=== PATIENT | male | born 2000 | race Caucasian/White ===

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

== ENCOUNTER 2018-03-17 19:30 | Emergency (ER) | payer BC ==
[2018-03-17 19:50] VITALS: BP 127/78; PULSE 86; RESP 16; TEMP 98.5
--- NOTE | 2018-03-17 20:54 | ED ---
Skin/Abscess/FB HPI - General Chief complaint: Skin/Abscess/Foreign Body Stated complaint: rash on leg Time Seen by Provider: 03/17/18 20:41 Source: patient, RN notes reviewed Mode of arrival: ambulatory Limitations: no limitations - History of Present Illness Initial comments: This is a 17-year-old male who presents to the emergency department with chief complaint of rash. Patient states that he developed a red rash on his left thigh yesterday. He states that it is painful and burning. He states that approximately 1 week prior to the appearance of rash he had pain in the left thigh. He states he is up-to-date with all vaccinations. He states that his rash has been spreading. Denies fever, chills, chest pain, shortness of breath , abdominal pain, nausea or vomiting, constipation or diarrhea, dysuria or hematuria, numbness or tingling, headache or vision changes. - Related Data Previous Rx's Medication Instructions Recorded Acyclovir [Zovirax] 800 mg PO 5XD 7 Days #35 tab 03/17/18 Lidocaine 5% Patch [Lidoderm 5% 1 patch TOPICAL DAILY #5 patch 03/17/18 Patch] Allergies Allergy/AdvReac Type Severity Reaction Status Date / Time erythromycin base Allergy Unknown Verified 03/17/18 19:49 Review of Systems ROS Statement: Those systems with pertinent positive or pertinent negative responses have been documented in the HPI. ROS Other: All systems not noted in ROS Statement are negative. Past Medical History Past Medical History: No Reported History History of Any Multi-Drug Resistant Organisms: None Reported Past Surgical History: No Surgical Hx Reported Past Psychological History: No Psychological Hx Reported Smoking Status: Never smoker Past Alcohol Use History: None Reported Past Drug Use History: None Reported General Exam - General Exam Comments Initial Comments: General: Awake and alert, well-developed; in no apparent distress. HEENT: Head atraumatic, normocephalic. Pupils are equal, round and reactive to light. Extraocular movements intact. Oropharynx moist without erythema or exudate. Neck: Supple. Normal ROM. Cardiovascular: Regular rate and rhythm. No murmurs, rubs or gallops. Chest symmetrical. Respiratory: Lungs clear to auscultation bilaterally. No wheezes, rales or rhonchi. Normal respiratory effort with no use of accessory muscles. Musculoskeletal: Normal ROM, no tenderness bilateral upper and lower extremities. Ambulating normally. Skin: [place], warm and dry. Erythematous vesicular lesions in dermatomal pattern on left anterior thigh. Neurological: Alert and oriented x3. CN II-XII grossly intact. Speech is fluent and answers are appropriate. No focal neuro deficits. Psychiatric: Normal mood and affect. No overt signs of depression or anxiety noted. Limitations: no limitations Course Vital Signs 03/17/18 19:48 Temperature 98.5 F Pulse Rate 86 Respiratory 16 Rate Blood Pressure 127/78 O2 Sat by Pulse 98 Oximetry Medical Decision Making - Medical Decision Making This is a 17-year-old male who presents to the emergency department with chief complaint of rash on his left thigh. This developed yesterday and prior to the rash appearing patient had burning pain in the left thigh. Rash is erythematous vesicular lesions in a dermatomal pattern. This rash does appear to be shingles. Patient will be started on antiviral and lidocaine patch for analgesia. Patient's vital signs are stable and he is in no acute distress. He 'll be discharged home at this time. He is in agreement with plan and voices understanding. All questions answered. Disposition Clinical Impression: Herpes zoster Disposition: HOME SELF-CARE Condition: Good Instructions: Shingles (ED) Additional Instructions: Please take medications as prescribed. Please follow up with primary care provider within 1-2 days. Return to emergency department if symptoms should worsen or any concerns arise. Prescriptions: Acyclovir [Zovirax] 800 mg PO 5XD 7 Days #35 tab Lidocaine 5% Patch [Lidoderm 5% Patch] 1 patch TOPICAL DAILY #5 patch Is patient prescribed a controlled substance at d/c from ED?: No Referrals: None,Stated [Primary Care Provider] - 1-2 days Time of Disposition: 20:55
[2018-03-17] MEDS ORDERED: ACYCLOVIR 800 MG TAB PO STA (20:55)
[2018-03-17] MEDS ORDERED: LIDOCAINE 5% PATCH TOPICAL ONE (21:00)
== END 2018-03-17 21:21 | disposition home or self-care (01) ==
LOC: EC 19:30
DX: B02.9 Zoster without complications (principal); Z88.1 Allergy status to other antibiotic agents
CPT/HCPCS: 99282

== ENCOUNTER 2018-03-23 00:54 | Emergency (ER) | payer BC ==
[2018-03-23 00:59] VITALS: BP 123/82; PULSE 97; RESP 18; TEMP 98.3
[2018-03-23] MEDS ORDERED: ACET/COD 300 MG/30 MG STARTER PACK 6 TAB BTL PO STA (01:10)
--- NOTE | 2018-03-23 01:20 | ED ---
Skin/Abscess/FB HPI - General Chief complaint: Skin/Abscess/Foreign Body Stated complaint: Shingles Pain Time Seen by Provider: 03/23/18 01:01 Source: patient, RN notes reviewed, old records reviewed Mode of arrival: ambulatory Limitations: no limitations - History of Present Illness Initial comments: This patient is a 17-year-old male presents the emergency department for reevaluation due to shingles. Shingles approximately three days ago and started on a cycle of year. Patient states he's been taking the medication but the pain is getting progressively worse and more lesions are occurring. Patient states that he has use lidocaine patches which keep falling off. - Related Data Previous Rx's Medication Instructions Recorded Acyclovir [Zovirax] 800 mg PO 5XD 7 Days #35 tab 03/17/18 Lidocaine 5% Patch [Lidoderm 5% 1 patch TOPICAL DAILY #5 patch 03/17/18 Patch] Gabapentin [Neurontin] 300 mg PO DIRECTED #12 cap 03/23/18 Allergies Allergy/AdvReac Type Severity Reaction Status Date / Time erythromycin base Allergy Unknown Verified 03/23/18 00:59 Review of Systems ROS Statement: Those systems with pertinent positive or pertinent negative responses have been documented in the HPI. ROS Other: All systems not noted in ROS Statement are negative. Past Medical History Past Medical History: No Reported History History of Any Multi-Drug Resistant Organisms: None Reported Past Surgical History: No Surgical Hx Reported Past Psychological History: No Psychological Hx Reported Smoking Status: Never smoker Past Alcohol Use History: None Reported Past Drug Use History: None Reported General Exam - General Exam Comments Initial Comments: 17 year old male, no distress. Limitations: no limitations General appearance: alert, in no apparent distress Head exam: Present: atraumatic, normocephalic, normal inspection Eye exam: Present: normal appearance, PERRL, EOMI. Absent: scleral icterus, conjunctival injection, periorbital swelling ENT exam: Present: normal exam, mucous membranes moist Neck exam: Present: normal inspection. Absent: tenderness, meningismus, lymphadenopathy Respiratory exam: Present: normal lung sounds bilaterally. Absent: respiratory distress, wheezes, rales, rhonchi, stridor Cardiovascular Exam: Present: regular rate, normal rhythm, normal heart sounds. Absent: systolic murmur, diastolic murmur, rubs, gallop, clicks Extremities exam: Present: normal inspection, full ROM, normal capillary refill , other (multiple vesicles in dermatomal pattern over medial right knee and thigh. Some are crusted over, while a few new lesions appearing. ). Absent: tenderness, pedal edema, joint swelling, calf tenderness Back exam: Present: normal inspection Neurological exam: Present: alert, oriented X3, CN II-XII intact Psychiatric exam: Present: normal affect, normal mood Skin exam: Present: warm, dry, intact, normal color, rash (shingles rash over right medial knee. ) Course Vital Signs 03/23/18 00:57 Temperature 98.3 F Pulse Rate 97 Respiratory 18 Rate Blood Pressure 123/82 O2 Sat by Pulse 97 Oximetry Medical Decision Making - Medical Decision Making 17-year-old male complains of pain and right medial knee where he was diagnosed with shingles. He does have new lesions there occurring. I discussed that he needs to continue to take the antiviral medication. I also discussed we could start the patient on a short term a gabapentin to help with the pain as well. Will the shirts a patient at this time continue lidocaine patch. Will discharge with Tylenol 3 starter pack. All questions answered, return parameters discussed. Disposition Clinical Impression: Herpes zoster Disposition: HOME SELF-CARE Condition: Good Instructions: Shingles (ED) Additional Instructions: Continue lidocaine patch. The continues the gabapentin medicine as directed. Continue to take the acyclovir. Follow-up with a primary care provider. Prescriptions: Gabapentin [Neurontin] 300 mg PO DIRECTED #12 cap Is patient prescribed a controlled substance at d/c from ED?: No When asked, does pt state using other controlled substances?: No If prescribed controlled substance>3 days was MAPS reviewed?: No If opioid is for acute pain is fill amount 7 days or less?: No If Rx opioid, was Start Talking consent form obtained?: No Referrals: None,Stated [Primary Care Provider] - 1-2 days Time of Disposition: 01:11
== END 2018-03-23 01:34 | disposition home or self-care (01) ==
LOC: EC 00:54
DX: B02.9 Zoster without complications (principal); Z88.1 Allergy status to other antibiotic agents
CPT/HCPCS: 99283

== ENCOUNTER 2018-05-09 01:28 | Emergency (ER) | payer BC ==
[2018-05-09 01:34] VITALS: PULSE 94
[2018-05-09] MEDS ORDERED: ONDANSETRON 4 MG/2 ML VIAL IVP STA (01:43)
[2018-05-09] MEDS ORDERED: SODIUM CHLORIDE 0.9% 2,000 ML IV STA (01:43)
--- NOTE | 2018-05-09 01:48 | ED ---
Nausea/Vomiting/Diarrhea HPI - General Chief complaint: Nausea/Vomiting/Diarrhea Stated complaint: vomiting Time Seen by Provider: 05/09/18 01:39 Source: patient, RN notes reviewed Mode of arrival: ambulatory Limitations: no limitations - History of Present Illness Initial comments: 17-year-old male presents emergency from chief complaint nausea vomiting diarrhea. Patient states started at 11 AM the day prior. Patient states that he vomited most recent 30 minutes ago. Patient complains of diffuse abdominal discomfort. Denies any sick contacts no recent traveling no recent antibiotic use. Patient states that he is not sure why he is vomiting states he has no medications to help at home so he came the emergency department. He has a benign past medical history. Patient does not take any current medications has ALLERGY to erythromycin - Related Data Home Medications Medication Instructions Recorded Confirmed No Known Home Medications 05/09/18 05/09/18 Allergies Allergy/AdvReac Type Severity Reaction Status Date / Time erythromycin base Allergy Unknown Verified 05/09/18 01:34 Review of Systems ROS Statement: Those systems with pertinent positive or pertinent negative responses have been documented in the HPI. ROS Other: All systems not noted in ROS Statement are negative. Past Medical History Past Medical History: No Reported History History of Any Multi-Drug Resistant Organisms: None Reported Past Surgical History: No Surgical Hx Reported Past Psychological History: No Psychological Hx Reported Smoking Status: Never smoker Past Alcohol Use History: None Reported Past Drug Use History: None Reported General Exam Limitations: no limitations General appearance: alert, in no apparent distress Head exam: Present: atraumatic, normocephalic, normal inspection Eye exam: Present: normal appearance, PERRL, EOMI. Absent: scleral icterus, conjunctival injection, periorbital swelling Respiratory exam: Present: normal lung sounds bilaterally. Absent: respiratory distress, wheezes, rales, rhonchi, stridor Cardiovascular Exam: Present: regular rate, normal rhythm, normal heart sounds. Absent: systolic murmur, diastolic murmur, rubs, gallop, clicks GI/Abdominal exam: Present: soft, tenderness (Mild diffuse), normal bowel sounds. Absent: distended, guarding, rebound, rigid Back exam: Absent: CVA tenderness (R), CVA tenderness (L) Skin exam: Present: warm, dry, intact, normal color. Absent: rash Course Vital Signs 05/09/18 01:29 Temperature 97.8 F Pulse Rate 94 Respiratory 20 Rate Blood Pressure 119/78 O2 Sat by Pulse 99 Oximetry Medical Decision Making - Medical Decision Making 17-year-old male present emergency from for nausea vomiting diarrhea. Patient has gastroenteritis. He did have lab work urinalysis. He was given fluids and Zofran which he states he feels much better at this time. He'll be discharged with Zofran return parameters were discussed. - Lab Data Result diagrams: 05/09/18 01:59 05/09/18 01:59 Lab Results 05/09/18 05/09/18 05/09/18 Range/Units 01:59 01:59 01:59 WBC 13.5 H (4.0-11.0) k/uL RBC 5.50 (4.30-5.90) m/uL Hgb 16.1 (13.0-17.5) gm/dL Hct 46.8 (39.0-53.0) % MCV 85.2 (80.0-100.0) fL MCH 29.2 (25.0-35.0) pg MCHC 34.3 (31.0-37.0) g/dL RDW 12.5 (11.5-15.5) % Plt Count 220 (150-450) k/uL Neutrophils % 90 % Lymphocytes % 4 % Monocytes % 4 % Eosinophils % 1 % Basophils % 0 % Neutrophils # 12.2 H (1.3-7.7) k/uL Lymphocytes # 0.6 L (1.0-4.8) k/uL Monocytes # 0.5 (0-1.0) k/uL Eosinophils # 0.2 (0-0.7) k/uL Basophils # 0.0 (0-0.2) k/uL Sodium 138 (137-145) mmol/L Potassium 5.2 H (3.5-5.1) mmol/L Chloride 103 (98-107) mmol/L Carbon Dioxide 25 (22-30) mmol/L Anion Gap 10 mmol/L BUN 19 (9-20) mg/dL Creatinine 0.90 (0.66-1.25) mg/dL Est GFR (CKD-EPI)AfAm >90 (>60 ml/min/1.73 sqM) Est GFR (CKD-EPI)NonAf >90 (>60 ml/min/1.73 sqM) Glucose 102 H (74-99) mg/dL Calcium 9.5 (8.4-10.2) mg/dL Total Bilirubin 1.0 (0.2-1.3) mg/dL AST 37 (17-59) U/L ALT 35 (21-72) U/L Alkaline Phosphatase 89 (38-126) U/L Total Protein 8.1 (6.3-8.2) g/dL Albumin 4.9 (3.5-5.0) g/dL Amylase 77 (30-110) U/L Lipase 61 (23-300) U/L Urine Color Yellow Urine Appearance Clear (Clear) Urine pH 5.5 (5.0-8.0) Ur Specific [place] 1.020 (1.001-1.035) Urine Protein Negative (Negative) Urine Glucose (UA) Negative (Negative) Urine Ketones 2+ H (Negative) Urine Blood Negative (Negative) Urine Nitrite Negative (Negative) Urine Bilirubin Negative (Negative) Urine Urobilinogen <2.0 (<2.0) mg/dL Ur Leukocyte Esterase Trace H (Negative) Urine RBC <1 (0-5) /hpf Urine WBC <1 (0-5) /hpf Ur Squamous Epith Cells <1 (0-4) /hpf Urine Mucus Occasional H (None) /hpf Disposition Clinical Impression: Gastroenteritis Disposition: HOME SELF-CARE Condition: Stable Instructions: Gastroenteritis (ED) Additional Instructions: Please return to the Emergency Department if symptoms worsen or any other concerns. Is patient prescribed a controlled substance at d/c from ED?: No Referrals: None,Stated [Primary Care Provider] - 1-2 days Time of Disposition: 02:37
[2018-05-09 02:18] LABS: Basophils % (A) 0 %; Eosinophils # (A) 0.2 k/uL (0-0.7); Eosinophils % (A) 1 %; HCT 46.8 % (39.0-53.0); HGB 16.1 gm/dL (13.0-17.5); Lymphocytes # (A) 0.6 k/uL (1.0-4.8); Lymphocytes % (A) 4 %; MCH 29.2 pg (25.0-35.0); MCHC 34.3 g/dL (31.0-37.0); MCV 85.2 fL (80.0-100.0); Mean Platelet Volume 6.7; Monocytes # (A) 0.5 k/uL (0-1.0); Monocytes % (A) 4 %; Neutrophils # (A) 12.2 k/uL (1.3-7.7); Neutrophils % (A) 90 %; Platelet Count 220 k/uL (150-450); RDW 12.5 % (11.5-15.5); WBC 13.5 k/uL (4.0-11.0)
[2018-05-09 02:20] LABS: Appearance,Urine Clear (Clear); Bilirubin,Urine Negative (Negative); Blood,Urine Negative (Negative); Color,Urine Yellow; Glucose,Urine (UA) Negative (Negative); Ketones,Urine 2+ (Negative); Leukocyte Esterase,Urine Trace (Negative); Mucus,Urine Occasional /hpf; Nitrite,Urine Negative (Negative); PH, Urine 5.5 (5.0-8.0); Protein,Urine Negative (Negative); RBC,Urine <1 /hpf (0-5); Squamous Epithelial Cell,Urine <1 /hpf (0-4); Urobilinogen,Urine <2.0 mg/dL (<2.0); WBC,Urine <1 /hpf (0-5)
[2018-05-09 02:26] LABS: ALT 35 U/L (21-72); AST 37 U/L (17-59); Alkaline Phosphatase 89 U/L (38-126); Amylase 77 U/L (30-110); Anion Gap 10 mmol/L; Blood Urea Nitrogen 19 mg/dL (9-20); Calcium 9.5 mg/dL (8.4-10.2); Carbon Dioxide 25 mmol/L (22-30); Chloride 103 mmol/L (98-107); Glucose 102 mg/dL (74-99); Lipase 61 U/L (23-300); Sodium 138 mmol/L (137-145)
[2018-05-09 02:32] LABS: Albumin 4.9 g/dL (3.5-5.0); Potassium 5.2 mmol/L (3.5-5.1); Total Protein 8.1 g/dL (6.3-8.2)
[2018-05-09] MEDS ORDERED: ONDANSETRON 4 MG ODT STARTER PACK 2 TAB BTL PO STA (02:36)
[2018-05-09 02:57] VITALS: BP 117/62; RESP 16; TEMP 98.9
== END 2018-05-09 02:57 | disposition home or self-care (01) ==
LOC: EC 01:28
DX: K52.9 Noninfective gastroenteritis and colitis, unspecified (principal); Z88.1 Allergy status to other antibiotic agents
CPT/HCPCS: 99284; 96374; 96361 ×2; 36415; 80053; 82150; 83690; 85025; 81001; J2405

== ENCOUNTER 2019-06-29 19:42 | Emergency (ER) | payer BC ==
[2019-06-29] MEDS ORDERED: KETOROLAC 30 MG/ML 1 ML VIAL IVP STA (20:36)
[2019-06-29] MEDS ORDERED: SODIUM CHLORIDE 0.9% 1,000 ML IV STA (20:36)
[2019-06-29] MEDS ORDERED: METOCLOPRAMIDE 5 MG/ML 2 ML VIAL IVP STA (20:37)
[2019-06-29] MEDS ORDERED: diphenhydrAMINE 50 MG/ML 1 ML VIAL IVP STA (20:37)
--- NOTE | 2019-06-29 21:05 | ED ---
General Adult HPI - General Chief complaint: Headache Stated complaint: Vomiting, headache, bodyaches Time Seen by Provider: 06/29/19 20:01 Source: patient Mode of arrival: ambulatory Limitations: no limitations - History of Present Illness Initial comments: Patient is a 19-year-old male presenting to emergency Department with a chief complaint of a headache. Patient reports a history of chronic migraines that he has been able to treat with [id number] analgesics. Patient reports his current headache feels like his other headaches but it is slightly increased in severity. Patient reports the pain is located bilateral temporal rales. Patient does report nausea with multiple episodes of vomiting, as well as photosensitivity. Patient denies any blurry vision, ataxia, one-sided weakness, chest pain, chest tightness or shortness of breath. Patient states this is not the worse headache in his life. Patient denies any fevers night sweats or chills. - Related Data Home Medications Medication Instructions Recorded Confirmed Ibuprofen [Motrin] 800 mg PO TID PRN 06/29/19 06/29/19 Previous Rx's Medication Instructions Recorded Ondansetron Odt [Zofran Odt] 4 mg PO Q8HR PRN #15 tab 06/29/19 Allergies Allergy/AdvReac Type Severity Reaction Status Date / Time erythromycin base AdvReac Nausea & Verified 06/29/19 19:55 Vomiting Review of Systems ROS Statement: Those systems with pertinent positive or pertinent negative responses have been documented in the HPI. ROS Other: All systems not noted in ROS Statement are negative. Past Medical History Past Medical History: No Reported History History of Any Multi-Drug Resistant Organisms: None Reported Past Surgical History: No Surgical Hx Reported Past Psychological History: No Psychological Hx Reported Smoking Status: Never smoker Past Alcohol Use History: None Reported Past Drug Use History: None Reported General Exam Limitations: no limitations General appearance: alert, in no apparent distress Head exam: Present: atraumatic, normocephalic, normal inspection Eye exam: Present: normal appearance, PERRL, EOMI Pupils: Present: normal accommodation ENT exam: Present: normal exam, normal oropharynx, mucous membranes moist, TM's normal bilaterally, normal external ear exam Neck exam: Present: normal inspection, full ROM. Absent: other (Negative Brudzinski. Negative Kernig sign.) Respiratory exam: Present: normal lung sounds bilaterally Cardiovascular Exam: Present: regular rate, normal rhythm, normal heart sounds Extremities exam: Present: normal inspection, full ROM, normal capillary refill, other (+2 ulnar and radial pulses bilaterally.) Back exam: Present: normal inspection, full ROM Neurological exam: Present: alert, oriented X3, CN II-XII intact, normal gait Psychiatric exam: Present: normal affect, normal mood Skin exam: Present: warm, intact, normal color Course Vital Signs 06/29/19 06/29/19 19:46 22:50 Temperature 99.9 F H 98.9 F Pulse Rate 104 H 98 Respiratory 20 18 Rate Blood Pressure 120/78 117/72 O2 Sat by Pulse 99 100 Oximetry Medical Decision Making - Medical Decision Making Patient is a 19-year-old male presenting to emergency Department with a chief complaint of a headache. Patient has a history of chronic migraines that he is typically able to treat with [id number] analgesics but not this time. Patient given Reglan, Benadryl and Toradol. On reevaluation patient reports feeling better and nausea has completely resolved. Patient does appear to have a slight fever99.9. Patient has negative Brudzinski and Kernig sign. Patient advised about the possible signs of meningitis and the workup needed to rule out. Patient reports that he does not further workup and he feels better and is ready go home. Strict return parameters were thoroughly discussed with patient who is understanding and agreeable. Case discussed with physician. Disposition Clinical Impression: Headache Disposition: HOME SELF-CARE Condition: Stable Instructions (If sedation given, give patient instructions): Acute Headache (ED) Additional Instructions: Please follow with primary care. Alternate between Tylenol and ibuprofen for pain control. Please take prescribed medication as directed. Please return to emergency department if symptoms worsen. Prescriptions: Ondansetron Odt [Zofran Odt] 4 mg PO Q8HR PRN #15 tab PRN Reason: Nausea Is patient prescribed a controlled substance at d/c from ED?: No Referrals: None,Stated [Primary Care Provider] - 1-2 days Time of Disposition: 22:16
[2019-06-29] MEDS ORDERED: ONDANSETRON 4 MG ODT STARTER PACK 2 TAB BTL PO STA (22:16)
[2019-06-29 22:51] VITALS: BP 117/72; PULSE 98; RESP 18; TEMP 98.9
== END 2019-06-29 22:51 | disposition home or self-care (01) ==
LOC: EC 19:42
DX: R51 Headache (principal); R11.2 Nausea with vomiting, unspecified; H53.149 Visual discomfort, unspecified; Z88.1 Allergy status to other antibiotic agents; Z86.69 Personal history of other diseases of the nervous system and sense organs
CPT/HCPCS: 99283; 96374; 96375 ×2; 96361; J1200; J2765; J1885; S0119

== ENCOUNTER 2019-06-30 12:07 | Emergency (ER) | payer BC ==
[2019-06-30 12:56] VITALS: RESP 18
--- NOTE | 2019-06-30 13:56 | CT ---
EXAMINATION TYPE: CT brain wo con, CT facial bones wo con DATE OF EXAM: 06/30/2019 COMPARISON: NONE HISTORY: Fever, Congestion, Headache CT DLP: 1053.6 (accession [id number]), Included within the DLP for the brain of 1053.6 (accession [id number]) mGycm. Automated Exposure Control for Dose Reduction was Utilized. TECHNIQUE: CT scan of the head and facial bones is performed without contrast. FINDINGS: There is no acute intracranial hemorrhage, mass effect, or midline shift identified. The ventricles and sulci are within normal limits in size. The globes are intact and the visualized sin uses are clear. There is leftward nasal septal deviation. Middle and inferior nasal turbinate mucosal hypertrophy is seen on the right. Mild mucosal thickening is seen within the inferior maxillary sinu ses, ethmoid sinuses, and sphenoid sinuses. Frontal sinuses and mastoid air cells are well aerated. No acute fracture of the facial bones is seen. Old fracture deformity of the right nasal bone is note d. Maxillary spine is intact and unremarkable. Upper cervical spine and skull base are also unremarka ble. Although the ostia medial complexes are patent the right ostiomeatal complex is significantly na rrowed by mucosal thickening. Temporomandibular joints are symmetric and unremarkable. IMPRESSION: 1. No acute intracranial hemorrhage, mass effect, or midline shift is seen. 2. Right middle and inferior nasal turbinate mucosal hypertrophy with leftward nasal septal deviation and mild mucosal thickening of the paranasal sinuses/sinusitis. There is also significant narrowing of the right ostiomeatal complex by mucosal thickening.
[2019-06-30] MEDS ORDERED: PSEUDOEPHEDRINE 30 MG TAB PO STA (14:02)
[2019-06-30] MEDS ORDERED: AMOXIC-POT CLAV 875-125MG 1 EACH TAB PO STA (14:02)
[2019-06-30] MEDS ORDERED: AMOXIC-POT CLAV 875MG STARTER 2 EACH TABLET PO STA (14:02)
[2019-06-30] MEDS ORDERED: METOCLOPRAMIDE 5 MG/ML 2 ML VIAL IVP STA (14:10)
[2019-06-30] MEDS ORDERED: diphenhydrAMINE 50 MG/ML 1 ML VIAL IVP STA (14:10)
[2019-06-30] MEDS ORDERED: KETOROLAC 30 MG/ML 1 ML VIAL IVP STA (14:10)
[2019-06-30] MEDS ORDERED: SODIUM CHLORIDE 0.9% 500 ML 500 ML IV STA (14:10)
--- NOTE | 2019-06-30 14:16 | ED ---
General Adult HPI - General Chief complaint: Headache Stated complaint: Fever, Congested, Headache Time Seen by Provider: 06/30/19 12:59 Source: patient, RN notes reviewed, old records reviewed Mode of arrival: ambulatory Limitations: no limitations - History of Present Illness Initial comments: 19-year-old male patient passed no history of migraine headaches continue chief complaint of migraine headache. Patient reports that for approximately 2 days he has had a migraine headache, sinus pressure and congestion, fevers. Patient notes that he woke up today and had a 103 fever. Patient then took ibuprofen. Patient reports to the headache had an insidious onset. Patient denies thunderclap onset. Patient denies any loss of consciousness or changes in vision. Patient denies any previous imaging of head. Denies worst headache of life, however does state that is pretty severe. Denies other complaints. Systemic: Pt denies fatigue, fever/chills, rash. Pt denies weakness, night sweats, weight loss. Neuro: Pt denies visual disturbances, syncope or pre-syncope. HEENT: Pt denies ocular discharge or irritation, otalgia, rhinorrhea, pharyngitis or notable lymphadenopathy. Cardiopulmonary: Pt denies chest pain, SOB, heart palpitations, dyspnea on exertion. Abdominal/GI: Pt denies abdominal pain, n/v/d. : Pt denies dysuria, burning w/ urination, frequency/urgency. Denies new onset urinary or bowel incontinence. MSK: Pt denies myalgia, loss of strength or function in extremities. Neuro: Pt denies new onset weakness, paresthesias. - Related Data Home Medications Medication Instructions Recorded Confirmed Ibuprofen [Motrin] 800 mg PO TID PRN 06/29/19 06/30/19 Previous Rx's Medication Instructions Recorded Amoxicillin/Potassium Clav 1 each PO Q12HR 7 Days #14 tab 06/30/19 [Augmentin 875-125 Tablet] Allergies Allergy/AdvReac Type Severity Reaction Status Date / Time erythromycin base AdvReac Nausea & Verified 06/30/19 13:08 Vomiting Review of Systems ROS Statement: Those systems with pertinent positive or pertinent negative responses have been documented in the HPI. ROS Other: All systems not noted in ROS Statement are negative. Past Medical History Past Medical History: No Reported History History of Any Multi-Drug Resistant Organisms: None Reported Past Surgical History: No Surgical Hx Reported Past Psychological History: Anxiety Smoking Status: Never smoker Past Alcohol Use History: Rare Past Drug Use History: None Reported General Exam - General Exam Comments Initial Comments: Constitutional: NAD, AOX3, Pt has pleasant affect. HEENT: NC/AT, trachea midline, neck supple, no lymphadenopathy. Posterior pharynx non erythematous, without exudates. External ears appear normal, without discharge. Mucous membranes moist. Eyes PERRLA, EOM intact. There is no scleral icterus. No pallor noted. Reproducible maxillary sinus pressure. Cardiopulmonary: RRR, no murmurs, rubs or gallops, no JVD noted. Lungs CTAB in anterior and posterior nobles. No peripheral edema. Abdominal exam: Abdomen soft and non-distended. Abdomen non-tender to palpation in all 4 quadrants. Bowel sounds active in LLQ. No hepatosplenomegaly. No ecchymosis Neuro: CN II-XII intact. No nuchal rigidity. No raccon eyes, no vazquez sign, no hemotympanum. No cervical spinal tenderness. Brudzinski's and Kernig's sign negative. MSK: No posterior calf tenderness bilaterally, homans sign negative bilaterally. Posterior tibialis and radial pulse +2 bilaterally. Sensation intact in upper and lower extremities. Full active ROM in upper and lower extremities, 5/5 stregnth. Limitations: no limitations Course Vital Signs 06/30/19 12:54 Temperature 98.5 F Pulse Rate 100 Respiratory 18 Rate Blood Pressure 122/79 O2 Sat by Pulse 96 Oximetry Medical Decision Making - Medical Decision Making 19-year-old male patient presented to ED with chief complaint of 2 days of migraine headache. Patient also reports that he has had fevers as well as sinus congestion, maxillary sinus pain. Patient was seen in this emergency department yesterday however did not have any imaging performed. Patient was the headache has worsened as well has fevers and sinus pressure. Patient vital signs stable, afebrile. Physical exam displayed: CN II-XII intact. No nuchal rigidity. No raccon eyes, no vazquez sign, no hemotympanum. No cervical spinal tenderness. Brudzinski's and Kernig's sign negative. Reproducible maxillary sinus pressure. CT brain displayed no acute intracranial hemorrhage, mass effect or midline shift. Facial bones displayed right middle and inferior nasal turbinate mucosal hypertrophy with left right septal deviation and mild mucosal thickening of the paranasal sinuses/sinusitis. There is also significant narrowing of the right ostiomeatal complex by mucosal thickening. Patient headache resolved without intervention. Patient be treated with Augmentin for sinusitis. Patient di scharged with ENT follow-up. Case discussed with Dr. Valentine. Disposition Clinical Impression: Sinusitis, Acute headache Disposition: HOME SELF-CARE Condition: Stable Instructions (If sedation given, give patient instructions): Acute Headache (ED) Additional Instructions: Patient to adhere to previously discussed treatment plan and will take medication(s) as directed. Patient to follow up with PCP in 1-2 days. Patient to return to ED if symptoms do not improve. Follow-up with primary care and ENT follow-up. Take medication as prescribed. Return to ER if condition worsens. Prescriptions: Amoxicillin/Potassium Clav [Augmentin 875-125 Tablet] 1 each PO Q12HR 7 Days #14 tab Is patient prescribed a controlled substance at d/c from ED?: No Referrals: None,Stated [Primary Care Provider] - 1-2 days Max Chavez DO [Doctor of Osteopathic Medicine] - 1-2 days
[2019-06-30 14:39] VITALS: BP 108/68; PULSE 79; TEMP 97.6
== END 2019-06-30 14:39 | disposition home or self-care (01) ==
LOC: EC 12:07
DX: J01.90 Acute sinusitis, unspecified (principal); G43.909 Migraine, unspecified, not intractable, without status migrainosus; J34.2 Deviated nasal septum; Z88.1 Allergy status to other antibiotic agents
CPT/HCPCS: 70450; 70486; 99284

== ENCOUNTER → 2020-07-25 | Outpatient (CLI) | payer BC | END | disposition home or self-care (01) | LOC: LABWHC1 11:55 | PROVIDERS: ATTEND Emergency Medicine | DX: Z20.828 Contact with and (suspected) exposure to other viral communicable diseases (principal) | CPT/HCPCS: U0003; C9803 ==

== ENCOUNTER → 2020-09-11 | Outpatient (CLI) | payer BC | END | disposition home or self-care (01) | LOC: LABWHC1 10:20 | PROVIDERS: ATTEND Emergency Medicine | DX: Z20.828 Contact with and (suspected) exposure to other viral communicable diseases (principal) | CPT/HCPCS: U0003; C9803 ==

== ENCOUNTER 2020-09-20 06:53 | Emergency (ER) | payer BC ==
[2020-09-20 07:02] VITALS: BP 116/64; PULSE 98; RESP 18; TEMP 97.8
[2020-09-20] MEDS ORDERED: SODIUM CHLORIDE 0.9% 1,000 ML IV STA (07:11)
--- NOTE | 2020-09-20 07:17 | ED ---
General Adult HPI - General Chief complaint: Recheck/Abnormal Lab/Rx Stated complaint: Headache, Nausea Time Seen by Provider: 09/20/20 07:03 Source: patient, RN notes reviewed Mode of arrival: ambulatory Limitations: no limitations - History of Present Illness Initial comments: 20-year-old male with a past medical history of headaches presents to the [facility] for several complaints. Patient reports all symptoms have been going on for at least 2 weeks. He has been tested negative for covid twice. Reports he has not attempted to follow-up with a primary care provider. Patient reports he has been getting headaches which are a chronic symptom for years. These headaches have an insidious onset and come and go. He reports he sometimes has eye pain with these headaches which is also chronic. Patient reports he also has some nausea denies vomiting. States he has been able to drink plenty of fluids. Denies abdominal pain. Denies diarrhea. Patient is also somewhat short of breath. Slight cough and congestion. Denies any chest pain. States he has felt generally achy.Patient has no other complaints at this time including chest pain, abdominal pain, vomiting, or visual changes. - Related Data Home Medications Medication Instructions Recorded Confirmed Acetaminophen Tab [Tylenol Tab] 1,000 mg PO Q6HR PRN 09/20/20 09/20/20 Allergies Allergy/AdvReac Type Severity Reaction Status Date / Time erythromycin base AdvReac Nausea & Verified 09/20/20 07:33 Vomiting Review of Systems ROS Statement: Those systems with pertinent positive or pertinent negative responses have been documented in the HPI. ROS Other: All systems not noted in ROS Statement are negative. Past Medical History Past Medical History: No Reported History Additional Past Medical History / Comment(s): headaches History of Any Multi-Drug Resistant Organisms: None Reported Past Surgical History: No Surgical Hx Reported Past Psychological History: Anxiety Smoking Status: Never smoker Past Alcohol Use History: Rare Past Drug Use History: None Reported General Exam - General Exam Comments Initial Comments: Well appearing, walking in exam room. Limitations: no limitations General appearance: alert, in no apparent distress Head exam: Present: atraumatic, normocephalic, normal inspection Eye exam: Present: normal appearance, PERRL, EOMI. Absent: scleral icterus, conjunctival injection, periorbital swelling ENT exam: Present: normal exam, mucous membranes moist Neck exam: Present: normal inspection, full ROM. Absent: tenderness, meningismus, lymphadenopathy Respiratory exam: Present: normal lung sounds bilaterally. Absent: respiratory distress, wheezes, rales, rhonchi, stridor Cardiovascular Exam: Present: regular rate, normal rhythm, normal heart sounds. Absent: systolic murmur, diastolic murmur, rubs, gallop, clicks GI/Abdominal exam: Present: soft, normal bowel sounds. Absent: distended, tenderness, guarding, rebound, rigid Neurological exam: Present: alert, normal gait Course Vital Signs 09/20/20 06:59 Temperature 97.8 F Pulse Rate 98 Respiratory 18 Rate Blood Pressure 116/64 O2 Sat by Pulse 98 Oximetry Medical Decision Making - Medical Decision Making Vitals are stable. Patient is well appearing. CBC CMP unremarkable. Influenza is negative. Chest x-ray shows no acute cardiopulmonary process. Patient was already tested negative for Covid twice since the symptoms started. He will be tested again as it has been about 2 weeks since last test. At this time patient can follow up with his primary care provider for general malaise. He will be referred to primary care. He can return to the emergency room for any worsening symptoms which she is aware of. I discussed this case with attending Dr. Wills who agrees with this assessment and treatment plan. - Lab Data Result diagrams: 09/20/20 07:27 09/20/20 07:27 Lab Results 09/20/20 09/20/20 09/20/20 Range/Units 07:27 07:27 07:27 WBC 8.9 (3.8-10.6) k/uL RBC 5.36 (4.30-5.90) m/uL Hgb 16.0 (13.0-17.5) gm/dL Hct 47.2 (39.0-53.0) % MCV 88.0 (80.0-100.0) fL MCH 29.9 (25.0-35.0) pg MCHC 34.0 (31.0-37.0) g/dL RDW 12.1 (11.5-15.5) % Plt Count 239 (150-450) k/uL MPV 6.7 Neutrophils % 63 % Lymphocytes % 26 % Monocytes % 6 % Eosinophils % 2 % Basophils % 1 % Neutrophils # 5.6 (1.3-7.7) k/uL Lymphocytes # 2.3 (1.0-4.8) k/uL Monocytes # 0.6 (0-1.0) k/uL Eosinophils # 0.2 (0-0.7) k/uL Basophils # 0.1 (0-0.2) k/uL Sodium 137 (137-145) mmol/L Potassium 3.9 (3.5-5.1) mmol/L Chloride 102 (98-107) mmol/L Carbon Dioxide 25 (22-30) mmol/L Anion Gap 10 mmol/L BUN 16 (9-20) mg/dL Creatinine 0.94 (0.66-1.25) mg/dL Est GFR (CKD-EPI)AfAm >90 (>60 ml/min/1.73 sqM) Est GFR (CKD-EPI)NonAf >90 (>60 ml/min/1.73 sqM) Glucose 99 (74-99) mg/dL Calcium 9.9 (8.4-10.2) mg/dL Total Bilirubin 1.0 (0.2-1.3) mg/dL AST 27 (17-59) U/L ALT 20 (4-49) U/L Alkaline Phosphatase 84 (38-126) U/L Total Protein 8.2 (6.3-8.2) g/dL Albumin 5.0 (3.5-5.0) g/dL Influenza Type A RNA Not Detected (Not Detectd) Influenza Type B (PCR) Not Detected (Not Detectd) Disposition Clinical Impression: Malaise Disposition: HOME SELF-CARE Condition: Good Instructions (If sedation given, give patient instructions): Viral Syndrome (ED) Additional Instructions: Please follow-up with your doctor in one to 2 days. Drink plenty fluids. If you have any worsening symptoms return to the emergency room. You were Covid tested and should quarantine at least until you have your results. Is patient prescribed a controlled substance at d/c from ED?: No Referrals: Mara Treviño MD [REFERRING] - 1-2 days Time of Disposition: 08:19
[2020-09-20 07:38] LABS: Basophils # (A) 0.1 k/uL (0-0.2); Basophils % (A) 1 %; Eosinophils # (A) 0.2 k/uL (0-0.7); Eosinophils % (A) 2 %; HCT 47.2 % (39.0-53.0); Lymphocytes # (A) 2.3 k/uL (1.0-4.8); Lymphocytes % (A) 26 %; MCH 29.9 pg (25.0-35.0); Mean Platelet Volume 6.7; Monocytes # (A) 0.6 k/uL (0-1.0); Monocytes % (A) 6 %; Neutrophils # (A) 5.6 k/uL (1.3-7.7); Neutrophils % (A) 63 %; Platelet Count 239 k/uL (150-450); RBC 5.36 m/uL (4.30-5.90); RDW 12.1 % (11.5-15.5); WBC 8.9 k/uL (3.8-10.6)
[2020-09-20 07:45] LABS: ALT 20 U/L (4-49); AST 27 U/L (17-59); African American GFR (CKD) >90 (>60 ml/min/1.73 sqM); Alkaline Phosphatase 84 U/L (38-126); Anion Gap 10 mmol/L; Blood Urea Nitrogen 16 mg/dL (9-20); Calcium 9.9 mg/dL (8.4-10.2); Carbon Dioxide 25 mmol/L (22-30); Chloride 102 mmol/L (98-107); Glucose 99 mg/dL (74-99); Non-African American GFR(CKD) >90 (>60 ml/min/1.73 sqM); Potassium 3.9 mmol/L (3.5-5.1); Sodium 137 mmol/L (137-145); Total Protein 8.2 g/dL (6.3-8.2)
--- NOTE | 2020-09-20 08:09 | XR ---
EXAMINATION TYPE: XR chest 2V DATE OF EXAM: 09/20/2020 COMPARISON: Prior chest x-ray 07/09/2010 HISTORY: This of breath TECHNIQUE: Frontal and lateral views of the chest are obtained. FINDINGS: There is no focal air space opacity, pleural effusion, or pneumothorax seen. The cardiac silhouette size is within normal limits. There are prominent lung volumes. The osseous structures ar e intact, there is a slight spinal curvature.. IMPRESSION: No acute cardiopulmonary process.
== END 2020-09-20 08:32 | disposition home or self-care (01) ==
LOC: EC 06:53
DX: R53.81 Other malaise (principal); R51.9 Headache, unspecified; R11.0 Nausea; R06.02 Shortness of breath; R05 Cough; R09.89 Other specified symptoms and signs involving the circulatory and respiratory systems; Z20.828 Contact with and (suspected) exposure to other viral communicable diseases; Z88.1 Allergy status to other antibiotic agents
CPT/HCPCS: 36415; 80053; 85025; 87502; 71046; 96360; 99284; U0003

== ENCOUNTER 2022-04-11 14:12 | Emergency (ER) | payer BC ==
[2022-04-11 15:26] VITALS: BP 125/80; PULSE 76; RESP 18; TEMP 97.8
== END 2022-04-11 20:18 | disposition left against medical advice (07) ==
LOC: EC 14:12
DX: Z53.21 Procedure and treatment not carried out due to patient leaving prior to being seen by health care provider (principal); R07.9 Chest pain, unspecified
CPT/HCPCS: 93005; 99499

== ENCOUNTER → 2022-05-27 | Outpatient (CLI) | payer BC ==
--- NOTE | 2022-05-27 17:09 | CA ---
Transthoracic Echo Report Name: Tahir Ibanez Age: 21 Gender: M : 2000 Exam Date: 05/27/2022 12:08 Exam Location: [facility] Ht (in): 71 Wt (lb): 135 Ordering Physician: Caleb Ogden MD Attending/Referring Phys: Caleb Ogden MD Therapist Respiratory Mandy Fried BRANDON Procedure CPT: Indications: R07.9 Chest pain R00.2 Palpitations Cardiac Hx: Technical Quality: Good Contrast 1: Total Dose (mL): Contrast 2: Total Dose (mL): MEASUREMENTS (Male / Female) Normal Values 2D ECHO LV Diastolic Diameter PLAX 4.1 cm 4.2 - 5.9 / 3.9 - 5.3 cm LV Systolic Diameter PLAX 2.6 cm IVS Diastolic Thickness 0.7 cm 0.6 - 1.0 / 0.6 - 0.9 cm LVPW Diastolic Thickness 0.8 cm 0.6 - 1.0 / 0.6 - 0.9 cm LV Relative Wall Thickness 0.4 M-MODE Aortic Root Diameter MM 3.0 cm LA Systolic Diameter MM 2.4 cm LA Ao Ratio MM 0.8 MV E Point Septal Separation 0.7 cm AV Cusp Separation MM 2.2 cm DOPPLER AV Peak Velocity 111.1 cm/s AV Peak Gradient 4.9 mmHg MV Area PHT 5.6 cm??? MR Peak Velocity 112.0 cm/s MR Peak Gradient 5.0 mmHg Mitral E Point Velocity 100.9 cm/s Mitral A Point Velocity 62.1 cm/s Mitral E to A Ratio 1.6 MV Deceleration Time 135.1 ms MV E' Velocity 15.1 cm/s Mitral E to MV E' Ratio 6.7 TR Peak Velocity 74.9 cm/s TR Peak Gradient 2.2 mmHg Right Ventricular Systolic Press 7.2 mmHg FINDINGS Left Ventricle Left ventricular ejection fraction is estimated at 55-60 %. Normal Left ventricular size, wall thickness, systolic function with no obvious regional wall motion abnormalities. Normal Left ventricular diastolic filling pattern. Left ventricular cavity size normal. Right Ventricle The right ventricle is normal in size and function. Right Atrium The right atrium is normal in size. Left Atrium The left atrium is normal in size. Mitral Valve Structurally normal mitral valve without significant stenosis or prolapse. There is trace mitral regurgitation. Aortic Valve Structurally normal aortic valve without significant sclerosis or stenosis. There is no aortic regurgitation. Tricuspid Valve Structurally normal tricuspid valve without significant stenosis. Pulmonary artery systolic pressure is normal. Trace tricuspid regurgitation. Pulmonic Valve Structurally normal pulmonic valve without significant stenosis. There is no pulmonic regurgitation. Pericardium Normal pericardium without effusion. Aorta Normal aortic root dimension. CONCLUSIONS Normal LV systolic function. Previewed by: Dr. Ortega Ibarra MD (Electronically Signed) Final Date: 27 May 2022 17:08
== END | disposition home or self-care (01) ==
LOC: RADECHMAIN 12:01
PROVIDERS: ATTEND Family Medicine
DX: R07.9 Chest pain, unspecified (principal); R00.2 Palpitations
CPT/HCPCS: 93306